=== PATIENT | female | born 1970 | race Two or more races ===

== ENCOUNTER 2020-07-03 13:00 | Outpatient (CLI) | payer MEDICAID ==
--- NOTE | 2020-07-03 14:44 | Consultation ---
DATE OF CONSULTATION: 07/03/2020 CHIEF COMPLAINT: Abdominal pain. HISTORY OF PRESENT ILLNESS: This is a 49-year-old female referred to us for complaint of left upper quadrant abdominal pain for a while. Apparently, the patient had a workup including CT of the abdomen and pelvis, which showed gallstones but no explanation of the left upper quadrant abdominal pain. The patient also complained of some GERD, some constipation. For GERD, she is taking omeprazole with some improvement but not completely resolving her issue. PAST MEDICAL HISTORY: 1. Borderline high blood pressure. 2. Gallstones. 3. Gastritis. PAST SURGICAL HISTORY: , appendectomy. MEDICATIONS: Omeprazole. ALLERGIES: To penicillin. FAMILY HISTORY: No family history of GI malignancies. SOCIAL HISTORY: The patient denies any tobacco, alcohol, or drug abuse. PHYSICAL EXAMINATION: VITAL SIGNS: Stable HEENT: Normocephalic and atraumatic. Sclerae anicteric. NECK: Supple. No evidence of obvious lymphadenopathy. CARDIOVASCULAR: Regular rate and rhythm. Plus S1-S2. LUNGS: Clear to auscultation bilaterally. ABDOMEN: Positive bowel sounds. Soft and nontender. No rebound. No guarding No peritoneal sign. EXTREMITIES: No cyanosis, no clubbing, no edema. ASSESSMENT AND PLAN: This is a 49-year-old female with chronic GERD with minimum response to omeprazole and also constipation, left upper quadrant abdominal pain of unknown etiology with negative CT. Recommend endoscopy and colonoscopy for above. We will plan when authorization is obtained. William Seals M.D. DR: Tootie JOB#: [id number] CC:
[2020-07-04] MEDS ORDERED: OMEPRAZOLE40 M1 ORAL (08:32)
== END 2020-07-03 15:00 | disposition home or self-care (01) ==
LOC: PAN 13:00
DX: R10.13 Epigastric pain (principal); R10.12 Left upper quadrant pain; Z90.89 Acquired absence of other organs; Z88.0 Allergy status to penicillin; Z79.899 Other long term (current) drug therapy; K21.9 Gastro-esophageal reflux disease without esophagitis
CPT/HCPCS: 99203